=== PATIENT | female | born 1980 | race Hispanic/Latino ===

== ENCOUNTER 2024-11-17 08:30 | Observation (INO) | payer SELFPAY ==
[2024-11-17] VITALS (11 sets, daily range): BP systolic 107–127; BP diastolic 50–74; PULSE 70–97; RESP 16–18; TEMP 97.4–98.8; O2SAT 94–100
[~2024-11-17] VITALS: Ht 154.9 cm; Wt 57.2 kg
[2024-11-17 09:01] LABS: BASOPHIL # 0.1 10^3/uL (0.0-0.1); BASOPHIL % 0.9 % (0.1-1.2); EOSINOPHIL # 0.2 10^3/uL (0.0-0.2); EOSINOPHIL % 2.7 % (0.0-5.0); HEMATOCRIT(ML) 20.6 % (36.0-46.0); LYMPHOCYTES # 1.18 10^3/uL1 (1.0-4.8); MEAN CORP HGB 14.9 pg (26-34); MEAN CORP HGB CONCENTRATION 26.2 g/dL (33-36.5); MEAN CORP VOLUME 56.9 fL (78-100); MONOCYTES # 0.4 10^3/uL (0.3-0.8); MONOCYTES % 6.6 % (5.0-12.0); NEUTROPHIL # 4.7 10^3/uL (1.8-7.7); NEUTROPHILS % 71.5 % (41.0-85.0); PLATELET COUNT 333 10^3/uL (150-400); RED BLOOD CELL 3.62 10^6/uL (4.00-5.20); WHITE BLOOD CELL 6.6 10^3/uL (4.5-11.0)
[2024-11-17 09:17] LABS: +ADD MANUAL DIFF(NO CHRG) YES; HEMOGLOBIN 5.4 g/dL (12.0-15.0)
[2024-11-17 09:20] LABS: INFLUENZA VIRUS A ANTIGEN NEGATIVE (NEG); INFLUENZA VIRUS B ANTIGEN NEGATIVE (NEG)
[2024-11-17 09:24] LABS: ALBUMIN(ML) 3.5 g/dL (3.4-5.0); ALBUMIN/GLOBULIN RATIO 1.166; ANION GAP 13.3; BUN/CREATININE RATIO 8.82 (10.0-20.0); CALCIUM 8.7 mg/dL (8.4-10.5); CREATININE SERUM 0.68 mg/dL (0.59-1.40); EST GFR, NON-AA 94.4 (>/=60); POTASSIUM 3.3 mmol/L (3.6-5.2)
[2024-11-17] MEDS ORDERED: KLOR-CON 10 PO STA (09:57)
[2024-11-17] MEDS ORDERED: KLOR-CON 10 PO ONE (09:59)
[2024-11-17] MEDS ORDERED: POTASSIUM CHLORIDE ONE (10:01)
[2024-11-17] MEDS: POTASSIUM CHLORIDE PO STA (10:06)
[2024-11-17 10:12] LABS: EOSINOPHIL 2 % (1-4); HYPOCHROMIA 2+ (NEGATIVE); LYMPHOCYTE 18 % (25-36); MONOCYTE 3 % (3-9); SEGMENTED NEUTROPHILS 74 % (31-76); TOTAL CELLS COUNTED 100 #CELLS
[2024-11-17 10:13] LABS: ANISOCYTOSIS 1+ (NEGATIVE); MICROCYTOSIS 1+ (NEGATIVE); POIKILOCYTOSIS 1+ (NEGATIVE)
[2024-11-17] MEDS ORDERED: NS 500ML 500 ML IV ONE ×2 (10:42→17:55)
[2024-11-17 17:09] LABS: HEMOGLOBIN 7.4 g/dL (12.0-15.0)
[2024-11-17 21:26] LABS: HEMATOCRIT(ML) 28.5 % (36.0-46.0); HEMOGLOBIN 8.6 g/dL (12.0-15.0)
[2024-11-17] MEDS ORDERED: DUONEB 0.5-3(2.5) MG/3 ML IH PRN (23:30)
[2024-11-17] MEDS ORDERED: ULTRAM PO PRN (23:30)
[2024-11-17] MEDS ORDERED: DEXTROSE 50%-WATER SYRINGE IV PRN (23:30)
[2024-11-17] MEDS ORDERED: MORPHINE SULFATE IV PRN (23:30)
[2024-11-17] MEDS ORDERED: TYLENOL PO PRN (23:30)
[2024-11-17] MEDS ORDERED: ZOFRAN IV PRN (23:30)
[2024-11-17] MEDS ORDERED: NICOTINE 21 MGPATCH TD PRN (23:30)
[2024-11-17] MEDS ORDERED: APRESOLINE IV PRN (23:30)
[2024-11-17] MEDS ORDERED: NITROSTAT SL PRN (23:30)
[2024-11-18 01:02] VITALS: RESP 18; O2SAT 94
[2024-11-18 04:00] VITALS: BP 109/42; PULSE 73; RESP 16; TEMP 97; O2SAT 98
[2024-11-18 06:44] LABS: HEMATOCRIT(ML) 28.8 % (36.0-46.0); HEMOGLOBIN 8.5 g/dL (12.0-15.0); MEAN CORP HGB 19.3 pg (26-34); MEAN CORP HGB CONCENTRATION 29.5 g/dL (33-36.5); MEAN CORP VOLUME 65.3 fL (78-100); PLATELET COUNT 286 10^3/uL (150-400); RED BLOOD CELL 4.41 10^6/uL (4.00-5.20); RED CELL DISTRIBUTION WIDTH 28.8 % (11.5-14.5); WHITE BLOOD CELL 8.2 10^3/uL (4.5-11.0)
[2024-11-18 06:49] LABS: ANION GAP 12.6; BUN/CREATININE RATIO 7.27 (10.0-20.0); CALCIUM 8.4 mg/dL (8.4-10.5); CARBON DIOXIDE 25.4 mmol/L (20.0-32); CREATININE SERUM 0.55 mg/dL (0.59-1.40); EST GFR, NON-AA 120.6 (>/=60)
[2024-11-18 07:11] LABS: ANISOCYTOSIS 2+ (NEGATIVE); HYPOCHROMIA 3+ (NEGATIVE)
[2024-11-18 07:30] VITALS: BP 116/42; PULSE 70; RESP 17; TEMP 98.1; O2SAT 99
[2024-11-18] MEDS: FERREX 150 PO SCH (09:58)
[2024-11-18] MEDS: PROTONIX IV IV SCH (09:58)
[2024-11-18] MEDS ORDERED: FERR-39 PO (11:26)
[2024-11-18 12:06] VITALS: BP 120/55; PULSE 70; RESP 16; TEMP 97.9; O2SAT 99
[2024-11-18] MEDS: [UNRECOGNIZED DRUG - OTHER] TP PRN (13:15)
[2024-11-18 14:05] VITALS: BP 120/55; PULSE 70; RESP 16; TEMP 97.9; O2SAT 99
== END 2024-11-18 14:05 | disposition home or self-care (01) ==
LOC: ER 08:30 → INTOOBSV 09:57 → MS 09:57 → OBSVTOIN 09:57
PROVIDERS: ADMIT Student in an Organized Health Care Education/Training Program; ATTEND Student in an Organized Health Care Education/Training Program
DX: D64.9 Anemia, unspecified (principal); N92.0 Excessive and frequent menstruation with regular cycle; E87.6 Hypokalemia; Z20.822 Contact with and (suspected) exposure to COVID-19; Z98.890 Other specified postprocedural states; Z79.899 Other long term (current) drug therapy
CPT/HCPCS: 99291; 71045; 87426; 80053; 85025; 36415 ×2; 84484; 87070; 87880; 87804 ×2; 85060; 85018 ×2; 85014 ×2; 86900 ×2; 86901; 84703; 86885; 86923; 36430; 93005; 96374; 85027; 80048; G0378 ×22; J7040 ×2; J3490; P9016 ×2; C9113